=== PATIENT | male | born 1995 | race Caucasian/White ===

== ENCOUNTER 2016-11-24 22:58 | Emergency (ER) | payer OTHER ==
[~2016-11-24] VITALS: Ht 157.5 cm; Wt 56.8 kg
[2016-11-24 23:04] VITALS: TEMP 98.4
[2016-11-24 23:43] VITALS: BP 116/78; PULSE 68
== END 2016-11-24 23:51 | disposition home or self-care (01) ==
LOC: COL.ER 22:58
DX: S60.221A Contusion of right hand, initial encounter (principal); W21.06XA Struck by volleyball, initial encounter; Y92.318 Other athletic court as the place of occurrence of the external cause